=== PATIENT | female | born 1970 | race Caucasian/White ===

== ENCOUNTER 2016-06-26 12:06 | Day surgery (SDCO) | payer OTHER ==
[~2016-06-26] VITALS: Ht 165.1 cm; Wt 59.9 kg
[2016-06-26 13:47] LABS: BASOPHIL 0.1 % (0-2); EOSINOPHIL 0.9 % (0-5); HCT 39.9 % (37.0-47.0); HGB 14.3 g/dl (12.5-16.0); LYMPHOCYTE 22.7 % (15-48); MCH 31.6 pg (25.0-31.0); MCHC 35.8 g/dL (32.0-36.0); MCV 88.3 fL (78.0-100.0); MONOCYTE 8.5 % (0-12); MPV 9.9 fL (6.0-9.5); NEUTROPHIL 67.8 % (41-80); PLT 440 K/uL (150-400); RBC 4.52 M/uL (4.20-5.40); RDW 13.4 % (11.5-14.0)
[2016-06-26 13:51] LABS: BILIRUBIN NEGATIVE (NEGATIVE); BLOOD NEGATIVE Ery/uL (NEGATIVE); CLARITY CLEAR (CLEAR); COLOR YELLOW (YELLOW); GLUCOSE (U) NORMAL (NORMAL); KETONE (U) NEGATIVE (NEGATIVE); LEUKOCYTES NEGATIVE Leu/uL (NEGATIVE); NITRITE NEGATIVE (NEGATIVE); PROTEIN NEGATIVE (NEGATIVE); UROBILINOGEN 0.2 mg/dL (0.2-1.0); pH 5.5 (5.0-9.0)
[2016-06-26 13:55] LABS: WBC 20.6 K/uL (4.0-10.5)
[2016-06-26 14:18] LABS: AMPHETAMINES POSITIVE (NEGATIVE); BARBITURATES NEGATIVE (NEGATIVE); BENZODIAZEPINES NEGATIVE (NEGATIVE); COCAINE NEGATIVE (NEGATIVE); MARIJUANA (THC) NEGATIVE (NEGATIVE); METHADONE NEGATIVE (NEGATIVE); TRICYCLIC ANTIDEPRESSANT NEGATIVE (NEGATIVE)
[2016-06-26 14:30] LABS: ALBUMIN 5.2 g/dL (3.5-5.0); BILIRUBIN - TOTAL 0.6 mg/dL (0.1-1.0); CREATININE 1.9 mg/dL (0.5-1.0); GLOBULIN (CALCULATION) 3.3 g/dL (2.2-4.2); POTASSIUM 3.2 mmol/L (3.5-5.1); TOTAL PROTEIN 8.5 g/dL (6.4-8.3)
[2016-06-26 18:39] LABS: INR 1.03 (0.9-1.2); PROTHROMBIN TIME 13.1 SECONDS (11.7-14.0); PTT 28.4 SECONDS (23.2-31.4)
[2016-06-26 18:51] LABS: CREATININE 1.8 mg/dL (0.5-1.0); MAGNESIUM 1.51 mg/dL (1.40-2.10); POTASSIUM 3.2 mmol/L (3.5-5.1)
[2016-06-27 04:44] LABS: BASOPHIL 0.3 % (0-2); EOSINOPHIL 2.7 % (0-5); HCT 31.8 % (37.0-47.0); HGB 11.1 g/dl (12.5-16.0); LYMPHOCYTE 32.2 % (15-48); MCH 31.6 pg (25.0-31.0); MCHC 34.9 g/dL (32.0-36.0); MCV 90.6 fL (78.0-100.0); MONOCYTE 5.7 % (0-12); MPV 10.1 fL (6.0-9.5); NEUTROPHIL 59.1 % (41-80); PLT 298 K/uL (150-400); RBC 3.51 M/uL (4.20-5.40); RDW 13.4 % (11.5-14.0); WBC 11.8 K/uL (4.0-10.5)
[2016-06-27 05:12] LABS: CREATININE 1.6 mg/dL (0.5-1.0); POTASSIUM 4.5 mmol/L (3.5-5.1)
[2016-06-27 05:32] LABS: FT4 (FREE T4) 1.01 ng/dL (0.93-1.70); TSH (THYROID STIM HORMONE) 4.87 uIU/mL (0.270-4.200)
[2016-06-27 10:10] LABS: HCT 32.1 % (37.0-47.0); HGB 11.1 g/dl (12.5-16.0); MCH 31.6 pg (25.0-31.0); MCHC 34.6 g/dL (32.0-36.0); MCV 91.5 fL (78.0-100.0); MPV 9.6 fL (6.0-9.5); RBC 3.51 M/uL (4.20-5.40); RDW 13.5 % (11.5-14.0); WBC 8.7 K/uL (4.0-10.5)
[2016-06-27 12:33] LABS: CREATININE 1.3 mg/dL (0.5-1.0); POTASSIUM 4.4 mmol/L (3.5-5.1)
[2016-06-27] MEDS ORDERED: SYNTHROID100 MCG PO (13:20)
[2016-06-27] MEDS ORDERED: LISINOPRIL-HCT1 EAC2 PO (13:20)
[2016-06-27] MEDS ORDERED: LIPITOR20 MG PO (13:20)
[2016-06-27] MEDS ORDERED: CELEXA40 MG PO (13:20)
== END 2016-06-27 13:25 | disposition home or self-care (01) ==
LOC: FER 12:06 → FTCU 16:05
PROVIDERS: Internal Medicine; ADMIT Internal Medicine
DX: N17.9 Acute kidney failure, unspecified (principal); E87.1 Hypo-osmolality and hyponatremia; I10 Essential (primary) hypertension; F15.129 Other stimulant abuse with intoxication, unspecified; F11.10 Opioid abuse, uncomplicated; E87.6 Hypokalemia; E03.9 Hypothyroidism, unspecified; F41.9 Anxiety disorder, unspecified; F32.9 Major depressive disorder, single episode, unspecified; F17.210 Nicotine dependence, cigarettes, uncomplicated; Z80.3 Family history of malignant neoplasm of breast; Z82.3 Family history of stroke; Z83.3 Family history of diabetes mellitus
CPT/HCPCS: 36415; 71010; 71020; 71275; 80048; 80053; 80305; 81003; 82550; 83605; 83735; 84439; 84443; 84484; 85025; 85379; 85610; 85730; 87804; 87899; 93005; 94010; G0378; J1170; J1885; J2060; J2405; Q9967